=== PATIENT | male | born 1950 | race Two or more races ===

== ENCOUNTER 2024-08-18 12:35 | Inpatient (IN) | payer OTHER ==
[~2024-08-18] VITALS: Ht 177.8 cm; Wt 90.7 kg
[2024-08-18] MEDS ORDERED: METFORMIN HCL1000 M2 PO (12:44)
[2024-08-18] MEDS ORDERED: TOPROL XL50 M1 PO (12:44)
[2024-08-18] MEDS ORDERED: 0.9 % SODIUM CHLORIDE 1,000 ML IV ONE (12:45)
[2024-08-18] MEDS ORDERED: PANTOPRAZOLE SODIUM 40 MG/VIAL VIAL IV PUSH ONE (12:45)
[2024-08-18] MEDS ORDERED: PIPERACILLIN/TAZOBACTAM SODIUM 2.25 GM VIAL IV ONE (12:45)
[2024-08-18 13:34] LABS: HEMATOCRIT 34.4 % (39.0-48.0); HEMOGLOBIN 11.8 g/dL (13-16.00); MEAN CELL VOLUME 93.4 fL (80.0-100.00); MEAN CORPUSCULAR HGB CONC 34.2 g/dl (32.0-36.0); PLATELET COUNT 170 K/uL (150-450); RED BLOOD COUNT 3.69 M/uL (4.00-6.00); RED CELL DISTRIBUTION WIDTH 13.8 % (11.5-14.5)
[2024-08-18 13:50] LABS: INR 1.08; PARTIAL THROMBOPLASTIN TIME 30.1 SECONDS (22.0-34.0); PROTHROMBIN TIME 11.7 SECONDS (9.0-11.5)
[2024-08-18 13:54] LABS: ALBUMIN 3.4 gm/dL (3.4-5.0); BILIRUBIN TOTAL 0.52 mg/dL (0.3-1.2); CALCIUM 8.6 mg/dL (8.5-10.1); CREATININE SERUM 1.25 mg/dL (0.70-1.30); GFR 56.31; GLOBULINA 3.6 G/DL (2.4-3.5); POTASSIUM 3.84 mEq/L (3.5-5.1)
[2024-08-18 13:57] LABS: URINE APPEARANCE Clear; URINE BILIRRUBIN Negative (NEGATIVE); URINE BLOOD Negative; URINE COLOR Yellow; URINE KETONE 15 (NEGATIVE); URINE LEUKOCYTE Negative; URINE NITRATE Negative; URINE PROTEIN Trace (NEGATIVE); URINE UROBILINOGEN 0.2 E.U./dl
[2024-08-18 14:19] LABS: URINE BACTERIA 2.4 uL (0.0-1933); URINE EPITHELIAL CELLS 0.7 uL (0.0-38.8); URINE GLUCOSE >=1000 MG/DL (NEGATIVE); URINE RBC 0.2 uL (0.0-20.8); URINE WBC 1.5 uL (0.0-23.2)
[2024-08-18] MEDS ORDERED: MEROPENEM 500 MG/VIAL VIAL IV SCH (17:22)
[2024-08-18 17:30] VITALS: BP 148/75; O2SAT 100
[2024-08-18] MEDS ORDERED: ENALAPRILAT DIHYDRATE 1.25 MG/ML VIAL IV PRN (17:30)
[2024-08-18] MEDS ORDERED: MORPHINE SULFATE 2 MG/ML CARTRIDGE IV PRN (17:30)
[2024-08-18] MEDS ORDERED: DEXTROSE 50 % IN WATER 0.5 G/ML DISP.SYRIN IV PRN (17:30)
[2024-08-18] MEDS ORDERED: INSULIN LISPRO 1,000 UNIT/10 ML UNITS SUBCUTANEO PRN (17:30)
[2024-08-18] MEDS ORDERED: 0.9 % SODIUM CHLORIDE 1,000 ML IV SCH (17:30)
[2024-08-18] MEDS ORDERED: ONDANSETRON HCL 4 MG in 0.9 % SODIUM CHLORIDE 50 ML IV PRN (17:30)
[2024-08-18 20:24] LABS: INR 1.05; PROTHROMBIN TIME 11.4 SECONDS (9.0-11.5)
[2024-08-18 20:33] LABS: C-REACTIVE PROTEIN 10.1 MG/DL (0.00-0.29)
[2024-08-18 20:36] LABS: MAGNESIUM 1.3 mg/dL (1.8-2.4)
[2024-08-19 00:27] VITALS: BP 121/77; O2SAT 95
[2024-08-19 08:16] VITALS: BP 123/74; O2SAT 95
[2024-08-19] MEDS ORDERED: FAMOTIDINE/PF 20 MG in 0.9 % SODIUM CHLORIDE 8 ML IV PUSH SCH (09:00)
[2024-08-19] MEDS ORDERED: MAGNESIUM SULFATE IN WATER 2 GM/50 ML PIGGYBAG IV NR (09:00)
[2024-08-19] MEDS ORDERED: PANTOPRAZOLE SODIUM 40 MG/VIAL VIAL IV SCH (09:00)
[2024-08-19 16:49] VITALS: BP 120/75; O2SAT 95
[2024-08-20] MEDS ORDERED: PIPERACILLIN/TAZOBACTAM SODIUM 3.375 GM VIAL IV SCH
[2024-08-20 00:43] VITALS: BP 152/76; O2SAT 95
[2024-08-20 06:52] LABS: HEMATOCRIT 35.4 % (39.0-48.0); HEMOGLOBIN 12.1 g/dL (13-16.00); MEAN CELL VOLUME 92.9 fL (80.0-100.00); MEAN CORPUSCULAR HEMOGLOBIN 31.8 pg (27.00-32.0); MEAN CORPUSCULAR HGB CONC 34.2 g/dl (32.0-36.0); PLATELET COUNT 196 K/uL (150-450); RED BLOOD COUNT 3.81 M/uL (4.00-6.00); RED CELL DISTRIBUTION WIDTH 13.9 % (11.5-14.5)
[2024-08-20 07:30] LABS: ALBUMIN 3.3 gm/dL (3.4-5.0); BILIRUBIN TOTAL 0.56 mg/dL (0.3-1.2); CALCIUM 8.5 mg/dL (8.5-10.1); CREATININE SERUM 1.08 mg/dL (0.70-1.30); GFR 66.65; GLOBULINA 3.2 G/DL (2.4-3.5); MAGNESIUM 1.8 mg/dL (1.8-2.4); POTASSIUM 4.49 mEq/L (3.5-5.1); TOTAL PROTEIN 6.5 gm/dL (6.4-8.2)
[2024-08-20 08:00] VITALS: BP 138/80
[2024-08-20 16:29] LABS: CALCIUM 9.2 mg/dL (8.5-10.1); CREATININE SERUM 1.18 mg/dL (0.70-1.30); GFR 60.18; POTASSIUM 5.34 mEq/L (3.5-5.1)
[2024-08-20 16:34] VITALS: BP 144/75; O2SAT 97
[2024-08-20] MEDS ORDERED: AMINO ACIDS 4.25 %/DEXTROSE 5% 1,000 ML PERIFERAL SCH (17:00)
[2024-08-21 00:49] VITALS: BP 155/86; O2SAT 98
[2024-08-21] MEDS ORDERED: SODIUM POLYSTYRENE SULFONATE 15 G/4 TSP TSP RECTAL NR (06:45)
[2024-08-21 10:02] VITALS: BP 145/82; O2SAT 96
[2024-08-21 19:17] VITALS: BP 155/76; O2SAT 97
[2024-08-22 01:01] VITALS: BP 132/76; O2SAT 98
[2024-08-22 08:00] VITALS: BP 153/87; O2SAT 97
[2024-08-22] MEDS ORDERED: DIATRIZOATE MEGLUMINE, SODIUM 30 ML BOTTLE PO NR (09:30)
[2024-08-22 09:36] LABS: CALCIUM 9.6 mg/dL (8.5-10.1); CREATININE SERUM 1.09 mg/dL (0.70-1.30); GFR 65.95; POTASSIUM 4.97 mEq/L (3.5-5.1)
[2024-08-22 16:00] VITALS: BP 172/93; O2SAT 97
[2024-08-22 23:51] VITALS: BP 129/82; O2SAT 98
[2024-08-23 08:46] VITALS: BP 120/75; O2SAT 98
[2024-08-23 16:00] VITALS: BP 137/84; O2SAT 97
[2024-08-24 00:25] VITALS: BP 138/87; O2SAT 100
[2024-08-24 05:31] LABS: HEMATOCRIT 37.9 % (39.0-48.0); HEMOGLOBIN 12.6 g/dL (13-16.00); MEAN CELL VOLUME 93.3 fL (80.0-100.00); MEAN CORPUSCULAR HGB CONC 33.2 g/dl (32.0-36.0); PLATELET COUNT 202 K/uL (150-450); RED BLOOD COUNT 4.06 M/uL (4.00-6.00); RED CELL DISTRIBUTION WIDTH 13.6 % (11.5-14.5)
[2024-08-24 08:00] VITALS: BP 119/79; O2SAT 97
[2024-08-24 09:10] LABS: hav igm Negative (Negative); hcv Non Reactive (Non Reactive); hep b c Negative (Negative); hep b s ag Negative (Negative)
[2024-08-24 16:00] VITALS: BP 139/82; O2SAT 98
[2024-08-25 00:35] VITALS: BP 138/78; O2SAT 100
[2024-08-25 08:00] VITALS: BP 143/97; O2SAT 97
[2024-08-25 16:21] VITALS: BP 150/80; O2SAT 100
[2024-08-26 00:22] VITALS: BP 173/88; O2SAT 98
[2024-08-26 09:02] VITALS: BP 146/92; O2SAT 96
[2024-08-26 16:00] VITALS: BP 130/98; O2SAT 97
[2024-08-26 20:00] VITALS: BP 154/98; O2SAT 96
[2024-08-27 00:41] VITALS: BP 160/91; O2SAT 96
[2024-08-27 08:00] VITALS: BP 126/86; O2SAT 98
[2024-08-27 10:28] LABS: HEMATOCRIT 36.2 % (39.0-48.0); HEMOGLOBIN 12.3 g/dL (13-16.00); MEAN CELL VOLUME 91.9 fL (80.0-100.00); MEAN CORPUSCULAR HEMOGLOBIN 31.4 pg (27.00-32.0); MEAN CORPUSCULAR HGB CONC 34.1 g/dl (32.0-36.0); PLATELET COUNT 229 K/uL (150-450); RED BLOOD COUNT 3.93 M/uL (4.00-6.00); RED CELL DISTRIBUTION WIDTH 14.1 % (11.5-14.5)
[2024-08-27 17:16] VITALS: BP 189/93; O2SAT 99
[2024-08-27 20:45] VITALS: BP 150/100
[2024-08-28] VITALS: BP 160/77; O2SAT 95
[2024-08-28 08:26] VITALS: BP 129/81; O2SAT 95
== END 2024-08-28 14:16 | disposition home or self-care (01) | DRG 378 ==
LOC: ER 12:35 → SURH 18:31 → SURG 08-27 18:45
PROVIDERS: General Practice; Internal Medicine Nephrology; ADMIT Student in an Organized Health Care Education/Training Program; ATTEND Student in an Organized Health Care Education/Training Program
PROC: BW21YZZ Computerized Tomography (CT Scan) of Abdomen and Pelvis using Other Contrast (ICD-10-PCS; principal; 2024-08-18)
PROC: BW20ZZZ Computerized Tomography (CT Scan) of Abdomen (ICD-10-PCS; 2024-08-22)
DX: K57.01 Diverticulitis of small intestine with perforation and abscess with bleeding (principal); N17.8 Other acute kidney failure; I10 Essential (primary) hypertension; E11.9 Type 2 diabetes mellitus without complications; Z79.4 Long term (current) use of insulin; D72.10 Eosinophilia, unspecified